=== PATIENT | male | born 1965 | race Caucasian/White ===

== ENCOUNTER 2017-05-06 10:55 | Emergency (ER) | payer MEDICAID, OTHER ==
[~2017-05-06] VITALS: Ht 188 cm; Wt 90.7 kg
[2017-05-06 10:55] VITALS: BP_SYST 129
--- NOTE | 2017-05-06 10:55 | NUR ---
BROUGHT BACK TO BED #5 AND TRIAGED. REPORT GIVEN TO BEST
--- NOTE | 2017-05-06 11:14 | NUR ---
Pt complains of right rib pain since this morning, states was working on his car, stretched to get something from the other side of the car and heard a "pop", has had pain since then. Pt states is having difficulty breathing but is speaking in full sentences, ambulated into ER with no noted difficulities, has 02 sat of 96% on room air. No other injuries/complaints per pt or noted. Addendum: 05/06/17 at 1118 by [facility] No noted deformities but tender to touch
--- NOTE | 2017-05-06 11:22 | NUR ---
Dr Wilson examining pt at bedside.
--- NOTE | 2017-05-06 11:30 | NUR ---
recvd report from MACARIO Wood; pt in stable condition and being eval/assess by Dr. Wilson at bedside; awaiting for Xrays to be performed; pt complains 10/10 pain to R underarm area; refuse interventions at this time; will continue to monitor
--- NOTE | 2017-05-06 11:39 | NUR ---
pt off unit for Xray; ambulatory and stable
--- NOTE | 2017-05-06 11:50 | NUR ---
pt returned to unit from Radiology; ambulatory; c/o 04/06 pain to right underarm area; notified MD; will continue to monitor; pt transferred to bed 3
--- NOTE | 2017-05-06 12:04 | NUR ---
endorse care to MACARIO Wood; pt stable and sitting comfortably in bed3
--- NOTE | 2017-05-06 12:20 | NUR ---
Patient given written and verbal discharge instructions and verbalizes understanding. ER MD discussed with patient the results and treatment provided. Patient in stable condition. ID arm band removed. Rx of norco given. Patient educated on pain management and to follow up with PMD. Pain Scale 4. Dr Recio is aware and prescription for pain was given. Opportunity for questions provided and answered.
[2017-05-06 12:23] VITALS: BP_SYST 125
== END 2017-05-06 12:23 | disposition home or self-care (01) ==
LOC: SED 10:55
DX: S20.211A Contusion of right front wall of thorax, initial encounter (principal); I48.91 Unspecified atrial fibrillation; Z86.718 Personal history of other venous thrombosis and embolism; X58.XXXA Exposure to other specified factors, initial encounter; Y93.89 Activity, other specified; Y92.89 Other specified places as the place of occurrence of the external cause; Y99.8 Other external cause status
CPT/HCPCS: 71010; 71100; 99284

== ENCOUNTER 2018-05-12 01:55 | Emergency (ER) | payer MEDICAID ==
[~2018-05-12] VITALS: Ht 195.6 cm; Wt 111.1 kg
[2018-05-12 02:00] VITALS: BP_SYST 131
--- NOTE | 2018-05-12 02:05 | NUR ---
Patient to ER bed 8 for evaluation. Report given to
--- NOTE | 2018-05-12 02:05 | NUR ---
Pt states that he has some meat stuck in his throat since 2100 last night. Pt states that he has a hx of food getting stuck in throat and can usually dislodge foreign body by drinking a soda, but not effective this time. Unable to swallow saliva. Airway patent, talks in clear sentences. VSS.
--- NOTE | 2018-05-12 02:30 | NUR ---
ER at bedside examining patient.
[2018-05-12] MEDS ORDERED: NACL 0.9% 1,000 ML IV ONE (02:39)
[2018-05-12] MEDS ORDERED: DIAZEPAM 10 MG/2 ML DISP.SYRIN IVP ONE (02:45)
[2018-05-12] MEDS ORDERED: GLUCAGON,HUMAN RECOMBINANT 1 MG VIAL IVP ONE (02:45)
[2018-05-12 03:18] LABS: CALCIUM 9.2 mg/dL (8.4-11.0); CREATININE 0.88 mg/dL (0.55-1.30); POTASSIUM 4.4 mmol/L (3.5-5.1)
[2018-05-12 03:21] LABS: BASOPHILS # (AUTO) 0.1 K/uL (0.0-0.2); BASOPHILS % (AUTO) 1.5 % (0.0-2.0); EOSINOPHILS # (AUTO) 0.4 K/uL (0.0-0.4); EOSINOPHILS % (AUTO) 9.9 % (0.0-4.0); HEMATOCRIT 44.3 % (36-54); HEMOGLOBIN 14.7 g/dL (14.0-18.0); LYMPHOCYTES # (AUTO) 0.9 K/uL (1.0-5.5); LYMPHOCYTES % (AUTO) 19.9 % (20.5-51.5); MEAN CORPUSCULAR HEMOGLOBIN 30 pg (27-31); MEAN CORPUSCULAR HGB CONC 33 % (32-36); MEAN CORPUSCULAR VOLUME 92 fL (79.0-98.0); MONOCYTES # (AUTO) 0.5 K/uL (0.0-1.0); MONOCYTES % (AUTO) 11.7 % (1.7-9.3); NEUTROPHILS # (AUTO) 2.4 K/uL (1.8-7.7); PLATELET COUNT (AUTO) 124 K/uL (130-430); RED BLOOD CELL COUNT(AUTO) 4.83 MIL/uL (4.2-6.2); RED CELL DISTRIBUTION WIDTH 12.8 % (9.0-15.0); WHITE BLOOD COUNT (AUTO) 4.3 K/uL (4.8-10.8)
[2018-05-12 03:23] LABS: ALBUMIN 4.2 g/dL (3.4-4.8); TOTAL BILIRUBIN 0.6 mg/dL (0.0-1.0)
[2018-05-12 03:25] LABS: INR 1.4 (0.80-1.20)
[2018-05-12] MEDS ORDERED: LORazepam 2 MG/ML VIAL (FOR ER USE) IVP ONE (03:30)
--- NOTE | 2018-05-12 03:30 | NUR ---
Went in to medicate patient and patient states he no longer feels food logded in his throat. MD informed and examing patient.
[2018-05-12 03:37] LABS: PROTHROMBIN TIME 13.7 SECS (9.5-12.5)
[2018-05-12 03:53] VITALS: BP_SYST 122
== END 2018-05-12 03:54 | disposition home or self-care (01) ==
LOC: SED 01:55
DX: K22.2 Esophageal obstruction (principal); I48.91 Unspecified atrial fibrillation; R03.0 Elevated blood-pressure reading, without diagnosis of hypertension; Z86.718 Personal history of other venous thrombosis and embolism
CPT/HCPCS: 36415; 80053; 85025; 85610; 85730; 96374; 99284; J1610; J2060; J7030